=== PATIENT | female | born 1945 | race Caucasian/White ===

== ENCOUNTER 2017-01-07 06:59 | Day surgery (SDC) | payer MEDICARE ==
[2017-01-07] MEDS ORDERED: LIDOCAINE 2% MDV (20MG/ML) 20ML VIAL IV ONE (14:00)
[2017-01-07] MEDS ORDERED: PROPOFOL 10 MG/ML VIAL IV ONE (14:00)
--- NOTE | 2017-01-12 10:20 | Operative Note ---
DATE OF SURGERY: 01/07/2017 SURGEON: Jomar Diza MD OPERATION: COLONOSCOPY. INDICATIONS: This is a 71-year-old female with history of colon polyps who presented for surveillance colonoscopy in 5 years. POSTOPERATIVE DIAGNOSES: 1. A 3 mm sessile polyp in the descending colon that was removed by cold biopsy forceps. 2. A 3 mm sessile polyp in the cecum that was removed by cold biopsy forceps. 3. Scattered left-sided colonic diverticulosis. ANESTHESIA: Sedation is per Anesthesia. Pulse oximetry was monitored throughout the procedure to maintain O2 saturation of 90% or greater. Supplemental oxygen was administered via nasal cannula. Cardiac and vital signs were monitored throughout the duration of the procedure, and they were stable. The procedure of colonoscopy and risks and alternatives of the procedure, including the risk of bleeding and perforation, among others, were explained to the patient who voiced understanding and agreed to have the procedure done. Physical examination was performed, and the patient was found stable for sedation. PROCEDURE: The patient was placed in the left lateral position. Sedation was initiated. A digital rectal exam was performed and showed some mild external hemorrhoids with no palpable rectal masses. An Olympus PCF-180AL colonoscope was then inserted into the rectum under direct visualization. It was advanced to the cecum without difficulty. The ileocecal valve and appendiceal orifice were identified and photographed. The colonic mucosa was carefully examined upon introduction of the colonoscope. There were scattered diverticula in the sigmoid and descending colon. In the descending colon was a 3 mm sessile polyp that was noted and was removed by cold biopsy forceps. In the cecum was a 3 mm sessile polyp that was removed by cold biopsy forceps. There were no other lesions noted. The colonoscope was then withdrawn while carefully examining the colonic mucosal surfaces. No other lesions were noted. In the rectum, retroflexion was performed and grade 1 internal hemorrhoids were noted. The colonoscope was then withdrawn and the procedure was terminated. The patient tolerated the procedure well without any immediate complications. She remained with stable vital signs and was transferred to the recovery room. RECOMMENDATIONS: 1. The patient should be on a high-fiber diet. 2. The patient is to have a repeat colonoscopy for surveillance in 3 or 5 years depending on the histology of the polyps. Thank you for allowing me to participate in the care of your patient. CC: Dr. Priscilla BAKER
== END 2017-01-07 08:46 | disposition home or self-care (01) ==
LOC: HOP 06:59
PROVIDERS: ATTEND Internal Medicine Gastroenterology
DX: Z12.11 Encounter for screening for malignant neoplasm of colon (principal); Z86.010 Personal history of colon polyps; D12.4 Benign neoplasm of descending colon; D12.0 Benign neoplasm of cecum; K57.30 Diverticulosis of large intestine without perforation or abscess without bleeding; E03.9 Hypothyroidism, unspecified

== ENCOUNTER 2018-07-05 18:21 | Emergency (ER) | payer MEDICARE ==
--- NOTE | 2018-07-05 19:32 | Emergency Department Record ---
History of Present Illness - General Chief Complaint: Fall Injury Stated Complaint: FALL/5 DAYS AGO Time Seen by Provider: 07/05/18 19:20 Source: Patient Mode of Arrival: Ambulatory - History of Present Illness Initial Comments: The patient states she was in a [place] airport admiring the artwork on the floor when she tripped on the toe of her tennis shoe, doing a face plant onto the floor on 06-30-18. She did not lose consciousness. She denies neck pain, chest abdominal, or extremity pain. She does have an intermittent headache since then. She now has "black and blue" left eye and forehead. She denies vision changes, malocclusion, or unilateral weakness. Her family doctor sent her here to get a CT scan of her head. Complaint: Fall Onset/Timin -: Days(s) When Fall Occurred: # Days [facility] Fall Witnessed: Yes, by bystander Place Fall Occurred: Other Loss of Consciousness: None Prolonged Down Time?: No Symptoms Prior to Fall: None Context: Tripped/slipped Associated Symptoms: Denies - Related Data Allergies Allergy/AdvReac Type Severity Reaction Status Date / Time Penicillins Allergy Severe RASH Unverified 06/14/18 14:18 Travel Screening - Travel/Exposure Within Last 30 Days Have you traveled within the last 30 days?: No Review of Systems Reviewed: No additional complaints except as noted below Constitutional: Reports: As per HPI. Denies: Chills, Fever, Malaise, Night sweats, Weakness, Weight change Eyes: Reports: As per HPI. Denies: Eye discharge, Eye pain, Photophobia, Vision change ENT: Reports: As per HPI. Denies: Congestion, Dental pain, Ear pain, Epistaxis , Hearing loss, Throat pain Respiratory: Reports: As per HPI. Denies: Cough, Dyspnea, Hemoptysis, Stridor, Wheezes Cardiovascular: Reports: As per HPI. Denies: Arrhythmia, Chest pain, Dyspnea on exertion, Edema, Murmurs, Orthopnea, Palpitations, Paroxysmal nocturnal dyspnea, Rheumatic Fever, Syncope Endocrine: Reports: As per HPI. Denies: Fatigue, Heat or cold intolerance, Polydipsia, Polyuria Gastrointestinal: Reports: As per HPI. Denies: Abdominal pain, Constipation, Diarrhea, Hematemesis, Hematochezia, Melena, Nausea, Vomiting Genitourinary: Reports: As per HPI. Denies: Abnormal menses, Discharge, Dyspareunia, Dysuria, Frequency, Hematuria, Incontinence, Retention, Urgency Musculoskeletal: Reports: As per HPI. Denies: Arthralgia, Back pain, Gout, Joint swelling, Myalgia, Neck pain Skin: Reports: As per HPI. Denies: Bruising, Change in color, Change in hair/ nails, Lesions, Pruritus, Rash Neurological: Reports: As per HPI. Denies: Abnormal gait, Confusion, Headache, Numbness, Paresthesias, Seizure, Tingling, Tremors, Vertigo, Weakness Psychiatric: Reports: As per HPI. Denies: Anxiety, Auditory hallucinations, Depression, Homicidal thoughts, Suicidal thoughts, Visual hallucinations Hematological/Lymphatic: Reports: As per HPI. Denies: Anemia, Blood Clots, Easy bleeding, Easy bruising, Swollen glands Past Medical History - SOCIAL HISTORY Smoking Status: Never smoker - RESPIRATORY Hx Respiratory Disorders: No - CARDIOVASCULAR Hx Cardio Disorders: No - NEURO Hx Neuro Disorders: No - GI Hx GI Disorders: Yes Hx of Polyps: Yes - Hx Genitourinary Disorders: Yes Hx Bladder Problem: Yes (LEAKAGE) - ENDOCRINE Hx Endocrine Disorders: Yes Hx Thyroid Disease: Yes - MUSCULOSKELETAL Hx Musculoskeletal Disorders: Yes Hx Arthritis: Yes Comment:: RA - PSYCH Hx Psych Problems: Yes Hx Anxiety: Yes Hx Depression: Yes - HEMATOLOGY/ONCOLOGY Hx Hematology/Oncology Disorders: No Comment:: NEVER WANTS A TRANSFUSION Family Medical History Any Significant Family History?: No Physical Exam - General General Appearance: Alert, Oriented x3, Cooperative, No acute distress - Head Head exam: Normocephalic Image of Face/Head: 1 - contusions, varying color, several days old - Eye Eye exam: Normal appearance, PERRL, EOMI. negative: Conjunctival injection, Nystagmus, Periorbital tenderness, Scleral icterus Pupils: Normal accommodation - ENT ENT exam: Normal exam, Mucous membranes moist, Normal external ear exam, Normal orophraynx, TM's normal bilaterally Ear exam: Normal external inspection. negative: External canal tenderness Nasal Exam: Normal inspection. negative: Discharge, Sinus tenderness Mouth exam: Normal external inspection, Tongue normal Teeth exam: Normal inspection. negative: Dental caries Throat exam: Normal inspection. negative: Tonsillar erythema, Tonsillar exudate - Neck Neck exam: Normal inspection, Full ROM, Other (no bony tenderness on palpation) . negative: Lymphadenopathy, Meningismus, Tenderness - Respiratory Respiratory exam: Normal lung sounds bilaterally. negative: Respiratory distress - Cardiovascular Cardiovascular Exam: Regular rate, Normal rhythm, Normal heart sounds - GI/Abdominal GI/Abdominal exam: Soft, Normal bowel sounds. negative: Tenderness - Rectal Rectal exam: Deferred - exam: Deferred - Extremities Extremities exam: Normal inspection, Full ROM, Normal capillary refill. negative: Calf tenderness, Pedal edema, Tenderness - Back Back exam: Reports: Normal inspection, Full ROM. Denies: CVA tenderness (R), CVA tenderness (L), Muscle spasm, Paraspinal tenderness, Rash noted, Tenderness , Vertebral tenderness - Neurological Neurological exam: Alert, CN II-XII intact, Normal gait, Oriented X3, Reflexes normal. negative: Motor sensory deficit - Psychiatric Psychiatric exam: Normal affect, Normal mood - Skin Skin exam: Dry, Intact, Normal color, Warm Course Vital Signs 07/05/18 18:44 Temperature 97.5 F L Pulse Rate 68 Respiratory 18 Rate Blood Pressure 170/78 Pulse Ox 97 - Reevaluation(s) Reevaluation #1: 07/05/18 19:37 Patient declined tylenol or ibuprofen when offered. CT scans ordered. Medical Decision Making - Management Options MDM Management: No Additional Work-up Planned - Data Complexity MDM Data: X-Ray Ordered and/or Reviewed (Noncontrast CT of Head, Face, Cervical Spine: All negative for fractures, some chronic changes noted per radiologist.) Disposition Disposition: Discharge Clinical Impression: Facial contusion Qualifiers: Encounter type: initial encounter Qualified Code(s): S00.83XA - Contusion of other part of head, initial encounter Disposition: Home, Self-Care Condition: (1) Good Instructions: Fall Prevention for Older Adults (ED) Additional Instructions: Ice to contusions. Tylenol alternated with ibuprofen as directed as needed for pain. Follow up with PCP as needed. Quality - Quality Measures Quality Measures: N/A - Blood Pressure Screening Does Patient Have Any of the Following: No Blood Pressure Classification: Hypertensive Reading Systolic Measurement: 170 Diastolic Measurement: 78 Screening for High Blood Pressure: Patient Exclusion, Hx of HTN [T9743]
== END 2018-07-05 21:21 | disposition home or self-care (01) ==
LOC: ER 18:21
DX: S00.83XA Contusion of other part of head, initial encounter (principal); S00.12XA Contusion of left eyelid and periocular area, initial encounter; R51 Headache; W01.198A Fall on same level from slipping, tripping and stumbling with subsequent striking against other object, initial encounter; Y92.520 Airport as the place of occurrence of the external cause; I10 Essential (primary) hypertension
CPT/HCPCS: 70450; 70486; 72125; 99283; 99284

== ENCOUNTER 2018-08-22 05:33 | Day surgery (SDC) | payer MEDICARE ==
[2018-08-07 13:52] LABS: BASO % 0.5 % (0-6); EOS % 2.6 % (0-6); GRAN % 54.7 % (47-80); HEMATOCRIT 43.8 % (35.0-47.0); HEMOGLOBIN 14.2 gm/dl (11.6-16.0); MEAN CELL VOLUME 93.2 fl (81-97); MEAN CORPUSCULAR HEMOGLOBIN 30.2 pg (27-33); MEAN CORPUSCULAR HGB CONC 32.4 g/dl (32-36); MEAN PLATELET VOLUME 10.3 fl (7.4-10.4); MONO % 8.2 % (0-9); PLATELET COUNT 212 K/uL (130-400); RED CELL DISTRIBUTION WIDTH 14.8 % (11.5-14.5); WHITE BLOOD COUNT W/O DIFF 6.2 K/uL (4.2-12.2)
[2018-08-07 14:01] LABS: BLOOD UREA NITROGEN 21 mg/dL (8-23); CREATININE 0.9 mg/dL (0.5-0.9); EST GLOMERULAR FILTRATION RATE > 60 mL/min; GLUCOSE,RANDOM 93 mg/dL (74-109)
[2018-08-22] MEDS ORDERED: MIDAZOLAM HCL 2MG/2ML VIAL IV ONE (05:34)
[2018-08-22] MEDS ORDERED: GLYCOPYRROLATE 0.2 MG/ML ML IV ONE (05:34)
[2018-08-22] MEDS ORDERED: DEXAMETHASONE 4 MG/ML 1ML VIAL IVP ONE (05:34)
[2018-08-22] MEDS ORDERED: ROPIVACAINE HCL (NAROPIN) /PF 5MG/ML 20ML VIAL IV ONE (05:34)
[2018-08-22] MEDS ORDERED: KETAMINE HCL 100MG/1ML VIAL INJ ONE (05:34)
[2018-08-22] MEDS ORDERED: LIDOCAINE 2% MDV (20MG/ML) 20ML VIAL IV ONE (05:34)
[2018-08-22] MEDS ORDERED: TRANEXAMIC ACID 1,000 MG/10 ML ML IV ONE (05:34)
[2018-08-22] MEDS ORDERED: PROPOFOL 10 MG/ML VIAL IV ONE (05:34)
[2018-08-22] MEDS ORDERED: MECLIZINE 25 MG TABLET PO ONE (06:00)
[2018-08-22] MEDS ORDERED: CLINDAMYCIN 600MG/50ML PREMIX 600 MG/50 ML BAG IVPB ONE (06:00)
[2018-08-22] MEDS ORDERED: RINGERS SOLUTION,LACTATED 1,000 ML IV ONE ×2 (06:45→08:01)
[2018-08-22] MEDS ORDERED: FAMOTIDINE 20MG TABLET PO ONE (06:50)
[2018-08-22] MEDS ORDERED: METOCLOPRAMIDE 10 MG TABLET PO ONE (06:50)
[2018-08-22] MEDS ORDERED: METOCLOPRAMIDE HCL 10 MG/2 ML VIAL IVP PRN (09:30)
[2018-08-22] MEDS ORDERED: HYDROMORPHONE HCL 2 MG/ML VIAL IV PRN (09:30)
[2018-08-22] MEDS ORDERED: ZOLPIDEM TARTRATE 5 MG TABLET PO PRN (09:30)
[2018-08-22] MEDS ORDERED: MAGNESIUM HYDROXIDE 30 ML UDC PO PRN (09:30)
[2018-08-22] MEDS ORDERED: AL HYDROX/MAG HYDROX 30ML UD PO PRN (09:30)
[2018-08-22] MEDS ORDERED: SENNOSIDES/DOCUSATE SODIUM UD CAPSULE PO PRN (09:30)
[2018-08-22] MEDS: RINGERS SOLUTION,LACTATED 1,000 ML IV SCH (09:30)
[2018-08-22] MEDS ORDERED: ACETAMINOPHEN 325 MG TAB PO PRN (09:30)
[2018-08-22] MEDS ORDERED: DIPHENHYDRAMINE HCL 25 MG CAPSULE PO PRN (09:30)
[2018-08-22] MEDS ORDERED: HYDROCODONE/APAP 5/325MG TABLET PO PRN (09:30)
[2018-08-22] MEDS ORDERED: OXYCODONE HCL/APAP 5MG/325MG TABLET PO PRN ×2 (09:30)
[2018-08-22] MEDS: TRAMADOL HCL 50 MG TABLET PO PRN ×2 (10:54→20:49)
[2018-08-22] MEDS ORDERED: TRANEXAMIC ACID 1,000 MG in 0.9 % SODIUM CHLORIDE 100ML 100 ML IVPB ONE (11:00)
[2018-08-22] MEDS: HYDROCODONE/APAP 5/325MG TABLET PO PRN ×2 (12:08→18:02)
[2018-08-22] MEDS: ONDANSETRON HCL IV 4 MG/2 ML VIAL IVP PRN ×3 (12:09→20:48)
[2018-08-22] MEDS: CLINDAMYCIN 600MG/50ML PREMIX 600 MG/50 ML BAG IVPB SCH ×2 (14:07→22:12)
--- NOTE | 2018-08-22 14:48 | Rehab Evaluation ---
Patient Information - Patient Information Diagnosis: R knee DJD Ordered Treatment: PT Evaluate and Treat Status: Initial Evaluation Surgery: Yes (R knee TKA) Date of Surgery: 08/22/18 Past Medical/Surgical Hx: PAST MEDICAL/SURGICAL HISTORY Past Surgical History COLONOSCOPY LEFT KNEE REPLACMENT CATARACT cholecystectomy tonsilectomy PMH - Respiratory Hx Respiratory Disorders No PMH - Cardiovascular Hx Cardiovascular Disorders No Exercise Tolerance Good PMH - Neuro Hx Neurological Disorders No PMH - GI Hx Gastrointestinal Disorders Yes PMH - Hx Genitourinary Disorders Yes Patient No Hx Bladder Problem Yes: LEAKAGE PMH - Endocrine Hx Endocrine Disorders Yes Hx Thyroid Disease Yes: on medication good control PMH - Musculoskeletal Hx Musculoskeletal Disorders Yes Hx Arthritis Yes: knees, hands, RA Comment: bursitis, dr gave shot PMH - Psych Hx Psychiatric Problems Yes Hx Anxiety Yes: on meds good control Hx Depression Yes Hx Emotional Abuse No Hx Sexual Abuse No Hx Suicide Attempt No Major Depressive Episode No Feelings of Hopelessness No PMH - Hematology/Oncology Hx Hematology/Oncology Yes Disorders Hx Anemia Yes Comment: NEVER WANTS A TRANSFUSION Premorbid Status: Detail (The patient was independent with all mobility prior to surgery.) Social History: Detail (The patient lives in 2 story home with daughter with 3 steps at the enterance.The bathroom is equipped with a walk in shower, grab bars , shower bench, elevated toilet without grab bars. The patietn has a 2 wheeled walker, wheelchair, canes.) Precautions: Deale, Fall, Other (WBAT on the R LE.) - Time With Patient Total Time Spent With Patient (Min): 30 Treatment Procedures: Detail (Initial evaluation, gait training) Subjective Information - Subjective Information Per Patient (The patietn had minimal complaints of pain.) Objective Data - Mental Status Patient Orientation: Oriented x3 - Visual Perception Appears within normal limits for therapeutic activities - ROM Not within normal limits (The patient's R knee AROM is limited as to be expected following surgery. All other LE AROM is WNL.) - Strength/Tone Not within normal limits (The patient's R LE strength was not tested but was functional ie: the patient was able to complete a SLR. The patient's L LE strength was WFL.) - Bed Mobility Independent (The patient was independent with supine to and from sit transfer and scooting up in bed.) - Transfers Independent (The patient was independent with sit to and from stand transfer.) - Balance Balance Sitting: Good Balance Standing: Good - Gait Detail (The patient ambulated with front wheeled walker a distance of 50 feet x 1 WBAT on the R LE with supervision for safety only. The patient also ambulated to bathroom with supervision for safety only.) Therapy Assessment - Therapy Assessment Detail (The patient was independent with bed mobility and transfers and required supervision for safety only with ambulation. Feel the patient will progress well with mobility.) Problem List - Problem List Physical Therapy Problem List: Detail (1) Decreased R knee LE AROM and strength as to be expected following surgery.) Goals - Goals Physical Therapy Goals: 1) The patient will ambulate on stairs using proper technique with super vision for safety. 2) The patient be independent with HEP of TKA exercises. 3)The patient will ambulate household distances with appropriate assistive device independently. Prognosis - Prognosis Good Plan - Plan Physical Therapy Plan: PT 1-2 sessions for gait training on levels and stairs and instruction in HEP.
[2018-08-22] MEDS ORDERED: PNEUM 13-VAL/PF 0.5 ML IM ONE (15:28)
[2018-08-22] MEDS ORDERED: CITALOPRAM 20 MG TABLET PO SCH (22:00)
[2018-08-22] MEDS: HYDROXYCHLOROQUINE SULFATE 200 MG TABLET PO SCH (22:09)
[2018-08-22] MEDS: ASPIRIN 325 MG TAB ENTERIC-COATED PO SCH (22:09)
[2018-08-23] MEDS: HYDROCODONE/APAP 5/325MG TABLET PO PRN ×3 (00:07→12:47)
[2018-08-23] MEDS: RINGERS SOLUTION,LACTATED 1,000 ML IV SCH (03:11)
[2018-08-23] MEDS: TRAMADOL HCL 50 MG TABLET PO PRN ×2 (03:19→09:38)
[2018-08-23] MEDS: ONDANSETRON HCL IV 4 MG/2 ML VIAL IVP PRN ×2 (05:46→12:26)
[2018-08-23] MEDS: CLINDAMYCIN 600MG/50ML PREMIX 600 MG/50 ML BAG IVPB SCH (06:05)
[2018-08-23] MEDS ORDERED: LEVOTHYROXINE SODIUM 88 MCG TABLET PO SCH (07:00)
--- NOTE | 2018-08-23 08:41 | Operative Note ---
DATE OF SURGERY: 08/22/2018 SURGEON: Kuldip Carlson DO PREOPERATIVE DIAGNOSIS: Osteoarthritis of the right knee. POSTOPERATIVE DIAGNOSIS: Osteoarthritis of the right knee. OPERATION: Right total knee arthroplasty. DESCRIPTION OF PROCEDURE: This 72-year-old female was taken to the operating room and placed in the supine position on the operating room table after spinal anesthesia had been induced. The right lower extremity was elevated. It was prepped with Hibiclens and draped in the usual sterile fashion, exsanguinated and the tourniquet inflated to 300 mmHg. All scrub personnel wore personal isolation suits. An anterior longitudinal midline incision was made followed by a medial parapatellar arthrotomy incision. An intracondylar drill hole was made for the intramedullary alignment sharon, and a 5-degree valgus 9 mm cut was made in the distal femur. The wafer of bone was removed. Sizing jig was affixed, and s size 62.5 was seen to be the appropriate size. However, because of the patient's AP-ML mismatch, we had to upsize slightly to a size 65 and this gave us excellent coverage with minimal ML overhang (less than 1 mm). The 4-in-1 cutting block was then pinned in 3 degrees of external rotation. The appropriate cuts were made. We then directed our attention to the proximal tibia, and an extramedullary alignment guide was used to cut the proximal tibia referencing a 10 mm cut off the lateral tibial plateau. After the alignment jig was set in appropriate position, the cutting block was pinned to cut a 10 mm cut in 3 degrees of posterior slope. The appropriate cut was made and the wafer of bone was removed. Remnants of the menisci and osteophytes were removed from the posterior aspect of the joint. The tibia was sized to a size 71 and the stem punch was used. The wound copiously irrigated with pulse lavage, lactated Ringer's solution. The patella was cut and restored to anatomic height with a 31 x 8 mm patella. The trial components were inserted, and a 12 mm bearing was seen to be the appropriate size. The knee was taken through range of motion and found to be stable throughout the full range of motion. No instability identified. All trial components were then removed and the wound again copiously irrigated with pulse lavage, lactated Ringer's solution. All bony surfaces were dried. Hemostasis obtained with the electrocautery. All components were cemented into place and excess cement removed after the insertion of each component. Initially the tibial baseplate was cemented followed by the insertion of the tibial bearing. Subsequently, the femoral component and patella were inserted. Once the cement had hardened, the knee was again taken through range of motion with excellent stability being identified. The wound was again irrigated and suctioned. A drain placed through a separate stab incision. The arthrotomy incision was closed with a #2 Vicryl. The subcutaneous tissue was closed with 0 Vicryl and the skin was stapled. Sterile dressings applied with a Polar Care. The patient was taken to the recovery room in satisfactory condition. GROSS PATHOLOGY: This patient demonstrated severe full-thickness medial compartment articular cartilage loss with disease in the lateral compartment to a lesser degree, early grade 2 changes, degenerative changes at the patella also identified grade 3. Final components inserted were a [employer] Vanguard size 65 cruciate retaining femoral component, a 71 tibial baseplate, 12 mm anterior stabilized bearing, and a 31 x 8 mm patella was used. CC: MD OLIVIA Hernandez
[2018-08-23] MEDS: HYDROXYCHLOROQUINE SULFATE 200 MG TABLET PO SCH (09:39)
[2018-08-23] MEDS: ASPIRIN 325 MG TAB ENTERIC-COATED PO SCH (09:39)
--- NOTE | 2018-08-23 09:46 | Physical Therapy Tx Note ---
Physical Therapy Tx Note - Treatment Note Tolerated: Good Total Time Spent With Patient: 30 Physical Therapy Tx Note: Detail (Patient was supine in bed upon [employer] BACK TENDER arrival. Patient states feeling good today. Patient transferred supine to sit independently. Patient transferred sit to and from stand CGA x1. Patient ambulated 130 feet with standard walker SBA x1. Patient ascended and descended 3 steps CGA x1 with using stairwell railing and walker. Patient performed the following exercises seated in chair x10 reps each: marching, quad sets, hamstring sets, heel slides, ankle pumps, and glut squeezes. Patient tolerated treatment well. Patient reports good understanding of HEP. Patient was left seated in chair with call light within reach. Patient has passed all inpatient PT goals. Patient disharged from inpatient PT at this time.) Physical Therapy Problem List: Detail (1) Decreased R knee LE AROM and strength as to be expected following surgery.) Physical Therapy Goals: 1) The patient will ambulate on stairs using proper technique with super vision for safety. 2) The patient be independent with HEP of TKA exercises. 3)The patient will ambulate household distances with appropriate assistive device independently. Prognosis: Good Physical Therapy Plan: Patient discharged from inpatient PT at this time.
--- NOTE | 2018-08-23 13:01 | Rehab Evaluation ---
Patient Information - Patient Information Diagnosis: R knee DJD Ordered Treatment: OT Evaluate and Treat Status: Initial Evaluation Surgery: Yes (R knee TKA) Date of Surgery: 08/22/18 Past Medical/Surgical Hx: PAST MEDICAL/SURGICAL HISTORY Past Surgical History COLONOSCOPY LEFT KNEE REPLACMENT CATARACT cholecystectomy tonsilectomy PMH - Respiratory Hx Respiratory Disorders No PMH - Cardiovascular Hx Cardiovascular Disorders No Exercise Tolerance Good PMH - Neuro Hx Neurological Disorders No PMH - GI Hx Gastrointestinal Disorders Yes PMH - Hx Genitourinary Disorders Yes Patient No Hx Bladder Problem Yes: LEAKAGE PMH - Endocrine Hx Endocrine Disorders Yes Hx Thyroid Disease Yes: on medication good control PMH - Musculoskeletal Hx Musculoskeletal Disorders Yes Hx Arthritis Yes: knees, hands, RA Comment: bursitis, gave shot PMH - Psych Hx Psychiatric Problems Yes Hx Anxiety Yes: on meds good control Hx Depression Yes Hx Emotional Abuse No Hx Sexual Abuse No Hx Suicide Attempt No Major Depressive Episode No Feelings of Hopelessness No PMH - Hematology/Oncology Hx Hematology/Oncology Yes Disorders Hx Anemia Yes Comment: NEVER WANTS A TRANSFUSION Premorbid Status: Detail (The patient was independent with all mobility, meal prep, laundry and home mgmt tasks prior to surgery.) Social History: Detail (The patient lives with daughter in a 1 story home with 3 steps and terrance hand rails at the entrance. The bathroom is equipped with a walk in shower, grab bars and shower bench and an elevated toilet without grab bars. The patient has a 2 wheeled walker, wheelchair, canes.) Precautions: Marissa, Fall, Other (WBAT on the R LE.) - Time With Patient Total Time Spent With Patient (Min): 35 Treatment Procedures: Detail (OT eval low complexity) Subjective Information - Subjective Information Per Patient Objective Data - Pain Pain Present: Yes (07/02) - Mental Status Patient Orientation: Oriented x3 - Visual Perception Appears within normal limits for therapeutic activities - ROM Within normal limits ([place] UE AROM WNL) - Strength/Tone Within normal limits ([place] UE strength WNL) - Coordination Appears within normal limits for therapeutic activities - Transfers Independent (Ind with sit to stand from chair height) - Balance Balance Sitting: Good Balance Standing: Good - Sensation Intact - ADL's/IADL's Detail (Pt educated and able to demonstrate modified LE dressing technique including doffing briefs and slipper socks and donning underwear, pants and slip on shoes. Reviewed kitchen and shower safety and modifications, pt verbalized understanding.) Therapy Assessment - Therapy Assessment Detail (Pt is safe and Ind with modified LE dressing techniques.) Problem List - Problem List Physical Therapy Problem List: Detail (1) Decreased R knee LE AROM and strength as to be expected following surgery.) Occupational Therapy Problem List: Detail (No current IP OT problems identified. ) Goals - Goals Physical Therapy Goals: 1) The patient will ambulate on stairs using proper technique with super vision for safety. 2) The patient be independent with HEP of TKA exercises. 3)The patient will ambulate household distances with appropriate assistive device independently. Occupational Therapy Goals: No current IP OT goals identified. Prognosis - Prognosis Good Plan - Plan Physical Therapy Plan: Patient discharged from inpatient PT at this time. Occupational Therapy Plan: No further IP OT recommended. Thank you for this referral.
--- NOTE | 2018-08-24 09:11 | Discharge Summary ---
DATE OF SERVICE: 08/23/2018. DATE OF ADMISSION: 08/22/2018. DATE OF DISCHARGE: 08/23/2018. ADMITTING DIAGNOSIS: Osteoarthritis of the right knee. DISCHARGE DIAGNOSIS: Osteoarthritis of the right knee. OPERATIVE PROCEDURE: Right total knee arthroplasty. HOSPITAL COURSE: This 72-year-old female was admitted to the hospital for total knee arthroplasty and tolerated the operative procedure well. She progressed satisfactorily with physical therapy. She will be discharged with instructions to wear her JOHN hose during the day and remove them at night. She will take aspirin 325 mg daily for 2 weeks, and she was given a prescription for Ultram #60 1 or 2 every 6 hours as necessary for pain. She was given a prescription for Zofran 4 mg #20 1 every 6 hours as necessary for nausea and Quinn 5/325 #60 1 every 4 hours as necessary for pain. Routine wound care instructions were given. She will follow up in clinic in 2 weeks. She will have home physical therapy. Should she have any problems prior to being seen, she is instructed to call my office. OLIVIA
== END 2018-08-23 14:07 | disposition home health service (06) ==
LOC: MEDSURG 05:33 → SUR 05:33 → MEDSURG 09:28 → SUR 08-23 14:07
PROVIDERS: ATTEND Orthopaedic Surgery
DX: M17.11 Unilateral primary osteoarthritis, right knee (principal); M06.9 Rheumatoid arthritis, unspecified; D64.9 Anemia, unspecified; E03.9 Hypothyroidism, unspecified; E66.9 Obesity, unspecified
CPT/HCPCS: 27447; 01402; 64447; 94760; 90670; 76942; G0009; J2405 ×2; J3490 ×2; J2795; 80048; 85025; 97110; 97530; J7120